=== PATIENT | female | born 1975 | race Caucasian/White ===

== ENCOUNTER 2017-09-30 13:24 | Emergency (ER) | payer MEDICARE, OTHER ==
[~2017-09-30] VITALS: Ht 162.6 cm; Wt 59.1 kg
[~2017-09-30 13:24] MED LIST: CELE10TA PO; CELE20TA PO; IBUP80TA PO; LAMO100T PO; LORA1TAB PO; PERCOCET PO
--- NOTE | 2017-09-30 14:07 | REP ---
CT Head without contrast HISTORY: Fall COMPARISON: None There is no intraparenchymal hemorrhage, acute infarct, mass or midline shift. The ventricular system is normal in appearance. There is no extra cerebral collection. There is no fracture. The visualized sinuses are clear. IMPRESSION: There is no intracranial lesion. Signed by Steve Melendez MD 09/30/2017 01:58 P
--- NOTE | 2017-09-30 14:12 | REP ---
CT cervical spine without contrast HISTORY: Fall COMPARISON: None There is no acute fracture or subluxation. There is no disc bulge or herniation. The spinal canal and neural foramina are patent. The intervertebral discs and vertebral bodies are normal in height. IMPRESSION: There is no acute fracture or subluxation. Signed by Steve Melendez MD 09/30/2017 02:03 P
[2017-09-30 14:32] LABS: MEAN CORPUSCULAR HEMOGLOBIN 31.1 pg (27.0-33.0); MEAN CORPUSCULAR HGB CONC 33.5 g/dl (32.0-36.5); MEAN CORPUSCULAR VOLUME 92.7 fl (80.0-96.0); PLATELET COUNT, AUTOMATED 225 10^3/uL (150-450); RED CELL DISTRIBUTION WIDTH 12.3 % (11.5-14.5)
[2017-09-30 14:52] LABS: ANION GAP 7 MEQ/L (8-16); BLOOD UREA NITROGEN 3 MG/DL (7-18); CALCIUM LEVEL 8.7 MG/DL (8.5-10.1); CARBON DIOXIDE LEVEL 28 MEQ/L (21-32); CHLORIDE LEVEL 105 MEQ/L (98-107); CREATININE FOR GFR 0.64 MG/DL (0.55-1.02); GLOMERULAR FILTRATION RATE > 60.0 (>58); GLUCOSE, FASTING 78 MG/DL (70-105); POTASSIUM SERUM 3.9 MEQ/L (3.5-5.1); SODIUM LEVEL 140 MEQ/L (136-145)
--- NOTE | 2017-09-30 14:55 | REP ---
LUMBAR SPINE, FIVE VIEWS: HISTORY: Fall. There is no acute fracture. The L4-5 intervertebral disc is decreased in height consistent with disc degeneration. The facet joints are normal in appearance. There are 2 mm of retrolisthesis of L5 on S1. There is spina bifida occult of S1. IMPRESSION: Degenerative change as described above. Signed by Steve Melendez MD 09/30/2017 03:07 P
--- NOTE | 2017-09-30 14:56 | REP ---
LEFT ANKLE COMPLETE: 09/30/2017. Clinical history: Trauma, patient fell. Findings: No prior study. The four views show the mortise joint symmetric and preserved. There is no talar dome osteochondral defect. No visible tibial or fibular fracture, avulsion or other acute finding. Talonavicular and calcaneocuboid joints are normal. Talus and calcaneus without a fracture. There is a spur at the insertion of the Achilles tendon. Subtalar joints were intact. There is minor soft tissue swelling anterior to the ankle. Impression: 1. No visible or displaced fracture, avulsion, subluxation or disruption of the mortise joint. Subtalar joints were intact. Small Achilles insertion spur. Signed by Travis Cleveland MD 09/30/2017 05:46 P
--- NOTE | 2017-09-30 14:56 | REP ---
LEFT ELBOW, FOUR VIEWS: HISTORY: Fall. There is no acute fracture or dislocation. The joint space is normal in appearance. IMPRESSION: There is no acute fracture or dislocation. Signed by Steve Melendez MD 09/30/2017 03:07 P
[2017-09-30] MEDS ORDERED: ACETAMINOPHEN 325 MG TAB PO ONE (15:00)
[2017-09-30 15:34] VITALS: BP 121/73
== END 2017-09-30 15:37 | disposition home or self-care (01) ==
LOC: M ED 13:24
DX: T14.8XXA Other injury of unspecified body region, initial encounter (principal); W19.XXXA Unspecified fall, initial encounter; Y92.89 Other specified places as the place of occurrence of the external cause; Y93.89 Activity, other specified; Y99.8 Other external cause status; R56.9 Unspecified convulsions; Z88.2 Allergy status to sulfonamides; Z91.040 Latex allergy status
CPT/HCPCS: 36415; 70450; 72110; 72125; 73080; 73610; 80048; 85027; 99284; G0480

== ENCOUNTER 2018-03-02 17:41 | Emergency (ER) | payer MEDICARE, MEDICAID, OTHER ==
[2018-03-02 19:47] LABS: BASO # 0.1 10^3/uL (0.0-0.2); EOS # 0.3 10^3/uL (0.0-0.50); EOS % 2.4 % (0.0-3.0); HEMATOCRIT 41.4 % (36.0-47.0); HEMOGLOBIN 13.8 g/dl (12.0-15.5); IMMATURE GRANULOCYTE % 0.4 % (0-3.0); LYMPH # 2.5 10^3/uL (1.5-4.5); LYMPH % 23.6 % (24.0-44.0); MEAN CORPUSCULAR HEMOGLOBIN 31.3 pg (27.0-33.0); MEAN CORPUSCULAR HGB CONC 33.3 g/dl (32.0-36.5); MEAN CORPUSCULAR VOLUME 93.9 fl (80.0-96.0); MONO # 0.5 10^3/uL (0.0-0.8); NEUTROPHILS # 7.1 10^3/uL (1.8-7.7); NEUTROPHILS % 67.6 % (36.0-66.0); PLATELET COUNT, AUTOMATED 215 10^3/uL (150-450); RED BLOOD COUNT 4.41 10^6/uL (4.00-5.40); RED CELL DISTRIBUTION WIDTH 12.5 % (11.5-14.5); WHITE BLOOD COUNT 10.5 10^3/uL (4.0-10.0)
[2018-03-02 19:56] LABS: ANION GAP 5 MEQ/L (8-16); BLOOD UREA NITROGEN 4 MG/DL (7-18); CALCIUM LEVEL 8.9 MG/DL (8.5-10.1); CARBON DIOXIDE LEVEL 31 MEQ/L (21-32); CHLORIDE LEVEL 104 MEQ/L (98-107); GLOMERULAR FILTRATION RATE > 60.0 (>58); GLUCOSE, FASTING 110 MG/DL (70-100); POTASSIUM SERUM 3.5 MEQ/L (3.5-5.1); SODIUM LEVEL 140 MEQ/L (136-145)
[2018-03-02] MEDS: LR 1,000 ML IV (20:05)
[2018-03-02] MEDS: KETOROLAC 30 MG/ML VIAL (J1885) IV (20:05)
[2018-03-02 20:07] LABS: ESTIMATED AVERAGE GLUCOSE 97 MG/DL (60-110)
[2018-03-02 20:14] LABS: BEDSIDE GLUCOSE 78 MG/DL (70-105)
[2018-03-02 21:06] LABS: BEDSIDE GLUCOSE 103 MG/DL (70-105)
== END 2018-03-02 21:32 | disposition home or self-care (01) ==
LOC: M ED 17:41
DX: G40.909 Epilepsy, unspecified, not intractable, without status epilepticus (principal); G43.909 Migraine, unspecified, not intractable, without status migrainosus; E16.2 Hypoglycemia, unspecified; F17.210 Nicotine dependence, cigarettes, uncomplicated; Z91.040 Latex allergy status; Z88.2 Allergy status to sulfonamides; Z79.899 Other long term (current) drug therapy
CPT/HCPCS: J1885

== ENCOUNTER 2018-07-17 00:27 | Emergency (ER) | payer MEDICARE, MEDICAID ==
[2018-07-17] MEDS: NS 1,000 ML IV (00:59)
[2018-07-17] MEDS: lamoTRIgine 100MG TAB PO (01:21)
[2018-07-17 01:32] LABS: BEDSIDE GLUCOSE 95 MG/DL (70-105)
[2018-07-17 01:54] LABS: ANION GAP 7 MEQ/L (8-16); BLOOD UREA NITROGEN 6 MG/DL (7-18); CALCIUM LEVEL 8.4 MG/DL (8.5-10.1); CARBON DIOXIDE LEVEL 29 MEQ/L (21-32); CHLORIDE LEVEL 110 MEQ/L (98-107); CREATININE FOR GFR 0.72 MG/DL (0.55-1.30); ETHYL ALCOHOL (ETHANOL) 0.056 % (0.000-0.010); GLOMERULAR FILTRATION RATE > 60.0 (>58); GLUCOSE, FASTING 87 MG/DL (70-100); POTASSIUM SERUM 3.9 MEQ/L (3.5-5.1); SODIUM LEVEL 146 MEQ/L (136-145)
== END 2018-07-17 02:38 | disposition home or self-care (01) ==
LOC: M ED 00:27
DX: G40.909 Epilepsy, unspecified, not intractable, without status epilepticus (principal); F10.929 Alcohol use, unspecified with intoxication, unspecified; G43.909 Migraine, unspecified, not intractable, without status migrainosus; F32.9 Major depressive disorder, single episode, unspecified; Z79.899 Other long term (current) drug therapy; Z91.040 Latex allergy status; Z88.2 Allergy status to sulfonamides
CPT/HCPCS: G0480

== ENCOUNTER 2019-02-05 13:33 | Emergency (ER) | payer MEDICARE, MEDICAID ==
[~2019-02-05 13:33] MED LIST changes: +EXCETAB80 PO; +ONFI10TA PO
[2019-02-05 13:37] VITALS: BP 114/63
[2019-02-05] MEDS ORDERED: AIMO70IN (13:48)
== END 2019-02-05 14:37 | disposition home or self-care (01) ==
LOC: M ED 13:33
DX: F44.5 Conversion disorder with seizures or convulsions (principal); G40.409 Other generalized epilepsy and epileptic syndromes, not intractable, without status epilepticus; Z72.0 Tobacco use; Z79.899 Other long term (current) drug therapy; Z91.040 Latex allergy status; Z88.2 Allergy status to sulfonamides

== ENCOUNTER 2019-07-25 18:22 | Emergency (ER) | payer MEDICARE, MEDICAID ==
[~2019-07-25] VITALS: Ht 162.6 cm; Wt 65.9 kg
[~2019-07-25 18:22] MED LIST changes: +AIMO70IN; +OXYC1TAB23 PO; -PERCOCET PO
[2019-07-25] MEDS ORDERED: LORA1TAB12 (18:44)
[2019-07-25 19:42] LABS: BASO # 0.1 10^3/uL (0.0-0.2); BASO % 0.8 % (0.0-1.0); EOS # 0.1 10^3/uL (0.0-0.5); EOS % 1.3 % (0.0-3.0); HEMOGLOBIN 13.6 g/dl (12.0-15.5); LYMPH # 2.6 10^3/uL (1.5-5.0); LYMPH % 27.2 % (24.0-44.0); MEAN CORPUSCULAR HEMOGLOBIN 32.3 pg (27.0-33.0); MONO # 0.6 10^3/uL (0.0-0.8); MONO % 6.1 % (0.0-5.0); NEUTROPHILS # 6.2 10^3/uL (1.5-8.5); NEUTROPHILS % 64.3 % (36.0-66.0); PLATELET COUNT, AUTOMATED 220 10^3/uL (150-450); RED BLOOD COUNT 4.21 10^6/uL (4.00-5.40); WHITE BLOOD COUNT 9.7 10^3/uL (4.0-10.0)
[2019-07-25 20:10] LABS: ALBUMIN 3.8 GM/DL (3.2-5.2); ALT/SGPT 16 U/L (12-78); BILIRUBIN,TOTAL 0.3 MG/DL (0.2-1.0); BLOOD UREA NITROGEN 5 MG/DL (7-18); CALCIUM LEVEL 9.1 MG/DL (8.5-10.1); CARBON DIOXIDE LEVEL 28 MEQ/L (21-32); CHLORIDE LEVEL 104 MEQ/L (98-107); CREATININE FOR GFR 0.76 MG/DL (0.55-1.30); GLOMERULAR FILTRATION RATE > 60.0 (>58); GLUCOSE, FASTING 79 MG/DL (70-100); POTASSIUM SERUM 3.7 MEQ/L (3.5-5.1); SODIUM LEVEL 138 MEQ/L (136-145); TOTAL PROTEIN 6.9 GM/DL (6.4-8.2)
--- NOTE | 2019-07-25 20:44 | ECGEPIP ---
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
[2019-07-25 20:45] VITALS: BP 143/84
== END 2019-07-25 20:52 | disposition left against medical advice (07) ==
LOC: M ED 18:22 → EDBD 18:22 → M ED 20:52
DX: R56.9 Unspecified convulsions (principal); R51 Headache; Z53.21 Procedure and treatment not carried out due to patient leaving prior to being seen by health care provider

== ENCOUNTER → 2020-02-28 | Outpatient (CLI) | payer MEDICARE, MEDICAID ==
[~2020-02-28] MED LIST changes: +LORA1TAB4
== END ==
LOC: M LABSMTC 12:00
PROVIDERS: ATTEND Family Medicine
DX: Z20.828 Contact with and (suspected) exposure to other viral communicable diseases (principal); Z11.59 Encounter for screening for other viral diseases

== ENCOUNTER 2021-08-16 23:33 | Inpatient (IN) | payer MEDICARE, MEDICAID ==
[~2021-08-16 23:33] MED LIST changes: -LORA1TAB4; +LORA1TAB4 PO
[2021-08-16] MEDS ORDERED: LORazepam 2 MG/ML VIAL As Ordered ONE (23:40)
[2021-08-16] MEDS ORDERED: ROCURONIUM BROMIDE 50 MG/5 ML VIAL IV ONE (23:50)
[2021-08-16] MEDS ORDERED: ETOMIDATE INJ 20MG/10ML VIAL IV ONE (23:50)
[2021-08-16] MEDS ORDERED: PROPOFOL 1,000 MG/100 ML VIAL As Ordered ONE (23:59)
[2021-08-17] VITALS (22 sets, daily range): BP systolic 113–186; BP diastolic 62–106
[2021-08-17] MEDS ORDERED: propofoL 1,000 MG in IV 1 EA IV SCH (00:05)
[2021-08-17] MEDS ORDERED: levETIRAcetam INJection 1,000 MG in D5W 100 ML IV ONE (00:05)
[2021-08-17 00:21] LABS: BASO # 0.1 10^3/uL (0.0-0.2); BASO % 0.9 % (0.0-1.0); EOS # 0.2 10^3/uL (0.0-0.5); EOS % 1.3 % (0.0-3.0); HEMATOCRIT 40.4 % (36.0-47.0); LYMPH # 3.9 10^3/uL (1.5-5.0); LYMPH % 27.1 % (24.0-44.0); MEAN CORPUSCULAR HEMOGLOBIN 32.3 pg (27.0-33.0); MEAN CORPUSCULAR HGB CONC 34.7 g/dl (32.0-36.5); MEAN CORPUSCULAR VOLUME 93.1 fl (80.0-96.0); MONO # 0.8 10^3/uL (0.0-0.8); MONO % 5.4 % (2.0-8.0); NEUTROPHILS # 9.2 10^3/uL (1.5-8.5); NEUTROPHILS % 64.7 % (36.0-66.0); PLATELET COUNT, AUTOMATED 254 10^3/uL (150-450); RED BLOOD COUNT 4.34 10^6/uL (4.00-5.40); WHITE BLOOD COUNT 14.2 10^3/uL (4.0-10.0)
[2021-08-17 00:42] LABS: RSV AMPLIFICATION NEGATIVE (NEGATIVE)
[2021-08-17 00:45] LABS: OSMOLALITY SERUM 266 MOSM/KG (275-295)
[2021-08-17 01:06] LABS: ACETAMINOPHEN LEVEL 2.5 UG/ML (10.0-30.0); ALBUMIN 3.5 GM/DL (3.2-5.2); ALT/SGPT 10 U/L (12-78); BILIRUBIN,DIRECT < 0.1 MG/DL (0.0-0.2); BILIRUBIN,TOTAL 0.3 MG/DL (0.2-1.0); BLOOD UREA NITROGEN 6 MG/DL (7-18); CALCIUM LEVEL 8.3 MG/DL (8.5-10.1); CARBON DIOXIDE LEVEL 22 MEQ/L (21-32); CHLORIDE LEVEL 99 MEQ/L (98-107); CK-MB VALUE MASS 1.3 NG/ML (<3.6); CPK CREATINE PHOSPHOKINASE 91 U/L (26-192); CREATININE FOR GFR 0.75 MG/DL (0.55-1.30); ETHYL ALCOHOL (ETHANOL) < 0.003 % (0.000-0.010); GLOMERULAR FILTRATION RATE > 60.0 (>58); GLUCOSE, FASTING 88 MG/DL (70-100); MB/CK RELATIVE INDEX 1.43 (< OR =4); POTASSIUM SERUM 4.2 MEQ/L (3.5-5.1); SODIUM LEVEL 131 MEQ/L (136-145); TOTAL PROTEIN 6.8 GM/DL (6.4-8.2); TROPONIN I < 0.02 NG/ML (< 0.10)
[2021-08-17 01:06] LABS: AMPHETAMINES LEVEL URINE NEGATIVE (NEGATIVE); BARBITURATES URINE NEGATIVE (NEGATIVE); BENZODIAZEPINES URINE POSITIVE (NEGATIVE); CANNABINOIDS URINE NEGATIVE (NEGATIVE); COCAINE METABOLITE URINE NEGATIVE (NEGATIVE); METHADONE URINE NEGATIVE (NEGATIVE); OPIATES URINE NEGATIVE (NEGATIVE); PHENCYCLIDINE URINE NEGATIVE (NEGATIVE)
[2021-08-17] MEDS ORDERED: CLOB10TA PO (01:14)
[2021-08-17] MEDS ORDERED: CITA40TA4 PO (01:14)
[2021-08-17] MEDS ORDERED: LAMO100T3 PO (01:14)
--- NOTE | 2021-08-17 01:14 | REPVR ---
PROCEDURE INFORMATION: Exam: CT Head Without Contrast Exam date and time: 08/16/2021 12:24 AM Age: 46 years old Clinical indication: Pain; Headache; Additional info: Altered mental status TECHNIQUE: Imaging protocol: Computed tomography of the head without contrast. Radiation optimization: All CT scans at this facility use at least one of these dose optimization techniques: automated exposure control; mA and/or kV adjustment per patient size (includes targeted exams where dose is matched to clinical indication); or iterative reconstruction. COMPARISON: CT Head without contrast 02/28/2018 5:30 PM FINDINGS: Brain: There is no CT evidence for an acute large vessel territorial infarct. No acute intracranial hemorrhage is seen. No mass, mass effect, midline shift, or herniation is noted. Cerebral ventricles: Normal for age. No hydrocephalus. Paranasal sinuses: The imaged portions of the sinuses are well aerated. No air-fluid levels are noted in the sinuses. The sinuses were not fully imaged. Mastoid air cells: The mastoid air cells are well aerated. Bones/joints: The skull is intact. No suspicious osteolytic or osteoblastic lesion. Soft tissues: Unremarkable. No soft tissue fluid collection. Nasopharynx: There are secretions in the nasopharynx. IMPRESSION: No acute intracranial abnormality. Electronically signed by: Roger Verduzco On 08/17/2021 01:13:50 AM
[2021-08-17] MEDS ORDERED: AIMO70IN2 INJ (01:16)
--- NOTE | 2021-08-17 01:16 | REPVR ---
PROCEDURE INFORMATION: Exam: XR Chest Exam date and time: 08/17/2021 12:22 AM Age: 46 years old Clinical indication: Device placement; Ett placement (vent status); Additional info: Post intubation tube placement TECHNIQUE: Imaging protocol: XR of the chest. Views: 1 view. COMPARISON: CR Chest, 2 view PA, Lat 02/28/2018 5:41 PM FINDINGS: Tubes, catheters and devices: An endotracheal tube is seen overlying the trachea, and the tip terminates 3.1 cm above the landry. There is an enteric tube terminating in the body of the stomach and the side hole for the enteric tube terminates just below the gastroesophageal junction. Lungs: Unremarkable. No consolidation. No pulmonary edema. Pleural spaces: Unremarkable. No pleural effusion. No pneumothorax. Heart/Mediastinum: Unremarkable. No cardiomegaly. Bones/joints: Unremarkable. IMPRESSION: 1. Endotracheal tube terminating in the trachea 3.1 cm above the landry. 2. Enteric tube terminating in the body of the stomach and the side hole for the enteric tube terminates just below the gastroesophageal junction. 3. No radiographic evidence for an acute cardiopulmonary process. Electronically signed by: Roger Verduzco On 08/17/2021 01:15:56 AM
[2021-08-17] MEDS ORDERED: MED REC COMMENT (01:19)
[2021-08-17] MEDS ORDERED: HOME MED LIST COMPLETE! XX SCH (01:20)
[2021-08-17] MEDS ORDERED: PROPOFOL 1,000 MG/100 ML VIAL As Ordered ONE (01:53)
[2021-08-17] MEDS ORDERED: MORPHINE 2 MG/ML 1ML VIAL (J2270) IV PRN (02:35)
[2021-08-17] MEDS ORDERED: MIDAZOLAM INJ 2MG/2ML VIAL (J2250 PER 1MG) IV PRN (02:35)
[2021-08-17] MEDS: IPRATROPIUM 0.5MG/ALBUTEROL 2.5MG INH SOL UD 3ML (DUONEB) NEB SCH ×6 (04:28→23:59)
[2021-08-17 04:29] LABS: HEMOGLOBIN 13.6 g/dl (12.0-15.5); MEAN CORPUSCULAR HEMOGLOBIN 32.4 pg (27.0-33.0); MEAN CORPUSCULAR HGB CONC 34.9 g/dl (32.0-36.5); MEAN CORPUSCULAR VOLUME 92.9 fl (80.0-96.0); PLATELET COUNT, AUTOMATED 258 10^3/uL (150-450)
[2021-08-17] MEDS: propofoL 1,000 MG in IV 1 EA IV SCH ×3 (04:38→09:29)
[2021-08-17 04:59] LABS: ALBUMIN 3.2 GM/DL (3.2-5.2); ALT/SGPT 12 U/L (12-78); BILIRUBIN,TOTAL 0.4 MG/DL (0.2-1.0); BLOOD UREA NITROGEN 5 MG/DL (7-18); CALCIUM LEVEL 8.3 MG/DL (8.5-10.1); CARBON DIOXIDE LEVEL 26 MEQ/L (21-32); CHLORIDE LEVEL 102 MEQ/L (98-107); CHOLESTEROL LEVEL 242 MG/DL (< 200); CPK CREATINE PHOSPHOKINASE 117 U/L (26-192); CREATININE FOR GFR 0.67 MG/DL (0.55-1.30); GLOMERULAR FILTRATION RATE > 60.0 (>58); GLUCOSE, FASTING 83 MG/DL (70-100); LDH LACTATE DEHYDROGENASE 189 U/L (84-246); PHOSPHORUS LEVEL 2.7 MG/DL (2.5-4.9); POTASSIUM SERUM 3.6 MEQ/L (3.5-5.1); SODIUM LEVEL 135 MEQ/L (136-145); TOTAL PROTEIN 6.3 GM/DL (6.4-8.2); TRIGLYCERIDES LEVEL 494 MG/DL (<150)
[2021-08-17 05:05] LABS: BASOPHILS 1 % (0-1); EOSINOPHILS 2 % (0-3); LYMPHOCYTES 29 % (16-44); MONOCYTES 5 % (0-5); NEUTROPHILS 63 % (28-66); PLATELET ESTIMATE NORMAL (NORMAL); SMUDGE CELLS 1+
[2021-08-17 05:06] LABS: TOXIC VACUOLATION 1+
[2021-08-17] MEDS: KCL 20MEQ IN D5/0.45NS 1000ML 1,000 ML IV SCH ×2 (05:15→09:31)
[2021-08-17] MEDS: HEPARIN SOD (PORCINE) 5000UNITS/ML 1ML VIAL/SYRINGE SC SCH ×3 (05:39→20:34)
--- NOTE | 2021-08-17 08:25 | HPE ---
HISTORY AND PHYSICAL/CRITICAL CARE NOTE DATE OF ADMISSION: 08/17/2021 START TIME: 209 STOP TIME: 243 HISTORY OF PRESENT ILLNESS: I was called to attend Columba Simmons here in the ER. 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 Reportedly EMS was summoned to her home this evening for someone that had nine seizures. When EMS arrived, the only person there was the patient. She was quite confused. She was felt to be postictal. She was given IV Versed by EMS. She then became apneic. She was ventilated with an Ambu bag without device during her transport. On arrival here, she was apneic, had significant secretions and examination of her eyes had very significant nystagmus and, therefore, was intubated. ER spoke with Dr. Carpenter and she was loaded with Keppra and placed on propofol. No further seizure activity. ALLERGIES: Listed as SULFA and LATEX. HOME MEDICATION LIST: - Excedrin migraine - Celexa 20 twice a day - Aimovig auto-injector - Lamotrigine 300 mg every morning and 300 mg at bedtime - P.r.n. Ativan. SOCIAL HISTORY, FAMILY HISTORY and REVIEW OF SYSTEMS: Currently unobtainable due to her status. PHYSICAL EXAMINATION: On exam, current blood pressure is 138/90, heart rate 60 and regular, respiratory rate is 16 via the ventilator. Knight catheter is in place. She is currently afebrile. HEENT: Shows oral endotracheal and orogastric tube in place. Pupils reactive. Sclerae clear. There is currently no nystagmus. Trachea is in the midline. CHEST: Clear to both auscultation and percussion. Expansion symmetric and no significant focal adventitious breath sounds are identified. Tactile fremitus is palpable throughout. CARDIAC EXAM: Regular without any murmur or gallop. Peripheral pulses palpable. No obvious edema. ABDOMEN: Soft with active bowel sounds. No convincing organomegaly or masses. EXTREMITIES: Show no obvious cyanosis or clubbing. NEUROLOGIC: Neurologically, she is sedate. PSYCHIATRIC EXAM: Shows her to be sedate. CT scan of the head is unremarkable. Chest x-ray shows her ET tube in good position. Orogastric tube is noted below the diaphragm. Arterial blood gas obtained as what appears to be on assist control of 18, total volume of 450, PEEP of 5, FiO2 of 30%. There a pH of 7.484, pCO2 of 34, pO2 of 80. Sodium 131, potassium (K) 4.2, chloride 99, CO2 of 22, BUN 6, creatinine 0.75, osmolality 266. Bilirubin 0.3. Ammonia 21. Troponin 0.02. Lactic acid 1.6. White blood cell count of 14.2, hemoglobin 14.0, platelet count 254,000, 64% segs, no bands. Viral panel is negative. Tox screen positive for acetaminophen at 2.5 and positive for benzodiazepines. IMPRESSION: 1. Seizure disorder. 2. Respiratory failure on the basis of the above. RECOMMENDATIONS: At this point, she will be admitted to the intensive care unit. For now, she has been loaded with Keppra. We will continue that. I will consult neurology in the morning. She will be continued on propofol. I will get a Keppra level as I suspect she may be noncompliant. There is no evidence of active infection. Of interest, she has a normal lactic acid level and no acidosis so it does not appear that she had significant tonic-clonic seizure activity. Certainly, one would not expect after nine seizures to be able to summon EMS by herself. At this point, we will proceed as outlined above. Also, deep vein thrombosis (DVT) prophylaxes are in place. There is nothing to suggest aspiration; therefore, we will not add empiric antibiotics but she will be followed closely for that. If she is not extubated within 24 hours, we will begin enteral feeds. We will facilitate transportation to the intensive care unit. I left the bedside at 0244 hours. Thirty-four minutes of critical care time were at the bedside not including procedures.
--- NOTE | 2021-08-17 08:35 | ECGEPIP ---
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
[2021-08-17] MEDS ORDERED: CHLORHEXIDINE GLUCONATE 0.12 % 15ML UDC (PERIDEX ORAL RINSE) MT SCH (09:00)
[2021-08-17] MEDS ORDERED: PANTOPRAZOLE 40MG VIAL (C9113 PER 1) IV SCH (09:00)
[2021-08-17] MEDS: levETIRAcetam 250MG TABLET (KEPPRA) PO SCH ×2 (09:31→20:32)
--- NOTE | 2021-08-17 10:22 | IPNPDOC ---
Date Seen The patient was seen on 08/17/21. Progress Note SUBJECTIVE: This is a 46 year old female presenting to the ED for possible seizures/pseudoseizure. She stated that she had nine seizures. When EMS arrived, the only person there was the patient. She was quite confused and felt to be postictal. She was given IV Versed by EMS. On arrival here, she was apneic, with significant secretions and examination of her eyes had very significant nystagmus and, therefore, was intubated. ER spoke with Dr. Carpenter and she was loaded with Keppra and placed on propofol. No further seizure activity. Patient was seen at bedside today. No acute events overnight. She was arousable when off sedation and was able to follow some simple commands. She started to gagged profusely and was extubated. She will be stepped down from the ICU and admitted under hospitalist service. REVIEW OF SYSTEMS: unable to obtain OBJECTIVE PHYSICAL EXAMINATION: VITAL SIGNS: Please see below. GENERAL: sedated; in acute distress HEENT: PERRLA; wandering eyes; moist mucous membranes; lots of secretions CARDIOVASCULAR: regular rate and rhythm; S1 and S2; no murmurs noted RESPIRATORY: clear to auscultation b/l; no wheezing, rales or rhonchi ABDOMINAL: normoactive bowel sounds; nondistended no tenderness to palpation EXTREMITIES: no pitting edema b/l NEUROLOGIC: arousable to name; gagging; able to perform simple tasks LABORATORY DATA, IMAGING STUDIES, MICROBIOLOGY: Please see below. ASSESSMENT AND PLAN: This is a 46 year old female presenting with possible s eizures/pseudoseizure and apneic and was initially intubated and then extubated this morning. She will be stepped down from the ICU and admitted under hospitalist service. PROBLEMS: 1. Respiratory failure - initially intubated on 08/16/2021 and then extubated today morning - will monitor O2 saturations and maintain airways 2. Seizures / Pseudoseizures - pt is taking lamotrigine outpatient; unknown if complaint; pending lamotrigine levels - was loaded on keppra in the ED and then continued on Keppra - neurology consulted; we appreciate their input in the care of this patient - pending EEG 3. DVT prophylaxis - TEDs and SCDs and Heparin VS, I&O, 24H, Fishbone Vital Signs/I&O Vital Signs Date Time Temp Pulse Resp B/P (MAP) Pulse Ox O2 Delivery O2 Flow Rate FiO2 08/17/21 09:29 138/89 08/17/21 08:00 97.7 78 18 99 Ventilator 30 I&O- Last 24 Hours up to 6 AM 08/17/21 06:00 Intake Total 350 ml Output Total 430 ml Balance -80 ml Laboratory Data 24H LABS Laboratory Tests 2 08/16/21 23:54: Immature Granulocyte % (Auto) 0.6, Neutrophils (%) (Auto) 64.7, Lymphocytes (%) (Auto) 27.1, Monocytes (%) (Auto) 5.4, Eosinophils (%) (Auto) 1.3, Basophils (%) (Auto) 0.9, Neutrophils # (Auto) 9.2H, Lymphocytes # (Auto) 3.9, Monocytes # (Auto) 0.8, Eosinophils # (Auto) 0.2, Basophils # (Auto) 0.1, Nucleated Red Blood Cells % (auto) 0.0, Anion Gap 10, Glomerular Filtration Rate > 60.0, Osmolality 266L, Lactic Acid Level 1.6, Calcium Level 8.3L, Total Bilirubin 0.3, Direct Bilirubin < 0.1, Aspartate Amino Transf (AST/SGOT) 13, Alanine Aminotransferase (ALT/SGPT) 10L, Alkaline Phosphatase 90, Ammonia 21, Total Creatine Kinase 91, Creatine Kinase MB 1.3, Creatine Kinase MB Relative Index 1.43, Troponin I < 0.02, Total Protein 6.8, Albumin 3.5, Albumin/Globulin Ratio 1.1L, Thyroid Stimulating Hormone (TSH) 2.320, Acetaminophen Level 2.5L, Ethyl Alcohol Level < 0.003, Coronavirus (COVID-19)(PCR) NEGATIVE, Influenza Type A (RT-PCR) NEGATIVE, Influenza Type B (RT-PCR) NEGATIVE, Respiratory Syncytial Virus (PCR) NEGATIVE 08/17/21 00:04: POC pH (Misc Panel) 7.484H, POC Base Excess (Misc Panel) 2.0, POC Saturated Percent O2 (Misc) 97, POC pO2 (Misc Panel) 80.0, POC pCO2 (Misc Panel) 34.1L, POC HCO3 (Misc Panel) 25.7, POC Total CO2 (Misc Panel) 27.0 08/17/21 00:10: POC Troponin I (Misc) 0.00 08/17/21 00:11: Urine Opiates Screen NEGATIVE, Urine Methadone Screen NEGATIVE, Urine Barbiturates Screen NEGATIVE, Urine Phencyclidine Screen NEGATIVE, Urine Amphe tamines Screen NEGATIVE, Urine Benzodiazepines Screen POSITIVEH, Urine Cocaine Metabolite Screen NEGATIVE, Urine Cannabinoids Screen NEGATIVE 08/17/21 04:16: Neutrophils (%) (Auto) , Nucleated Red Blood Cells % (auto) 0.0, Neutrophils 63, Lymphocytes (Manual) 29, Monocytes (Manual) 5, Eosinophils (Manual) 2, Basophils (Manual) 1, Toxic Vacuolation 1+, Smudge Cells 1+, Platelet Estimate NORMAL, Anion Gap 7L, Glomerular Filtration Rate > 60.0, Calcium Level 8.3L, Phosphorus Level 2.7, Total Bilirubin 0.4, Aspartate Amino Transf (AST/SGOT) 14, Alanine Aminotransferase (ALT/SGPT) 12, Alkaline Phosphatase 88, Lactate Dehydrogenase 189, Total Creatine Kinase 117, Total Protein 6.3L, Albumin 3.2, Albumin/Globulin Ratio 1.0L, Triglycerides Level 494H, Cholesterol Level 242H CBC/BMP Laboratory Tests 08/16/21 23:54 08/17/21 04:16 GME ATTESTATION GME ATTESTATION My faculty preceptor for this patient encounter was physically present during the encounter and was fully available. All aspects of the patient interview, examination, medical decision making process, and medical care plan development were reviewed and approved by the faculty preceptor. The faculty preceptor is aware and concurs with the plan as stated in the body of this note and will attest to such by his/her cosignature. ATTENDING NOTE I was physically present for the interview and exam. Agree with plan. Likely will extubate today. Melly Grullon DO Aug 17, 2021 10:20 Hardy Henderson Aug 17, 2021 19:34
[2021-08-17] MEDS ORDERED: CEPACOL LOZENGE PO PRN (11:20)
[2021-08-17] MEDS ORDERED: ACETAMINOPHEN TAB 650MG DOSE (2X325MG) PO PRN (11:20)
--- NOTE | 2021-08-17 15:58 | IPNPDOC ---
Text Note Date of Service The patient was seen on 08/17/21. NOTE Patient signed out to me by herpetologist Dr. Henderson. Patient was successfully extubated today. When I saw the patient she complains of some uncomfortable sensation in her throat. Objective: GENERAL APPEARANCE: NAD HEENT: no scleral icterus, no JVD, EOMI CARDIOVASCULAR: S1S2 LUNGS: Diminished lung sounds bilaterally ABDOMEN: soft & not tender w palpation MUSCULOSKELETAL: no cyanosis, no swelling INTEGUMENT: no generalized pallor NEUROLOGICAL: cranial nerve function from 2-12 intact, follows commands, speech not dysarthric Assessment and plan Patient 46 years old female with past medical history of seizures/pseudoseizures presented to hospital with confusion, subsequently she became apneic. EMS report stated that she had 9 seizures at home. Patient was intubated on 08/16/21 Seizures/apnea/acute hypoxemic respiratory failure Patient was intubated on arrival and successfully extubated today CT negative for stroke Dr Brock recommended continue Keppra and restart her lamotrigine and clobazam EEG was done today, results pending Seizure and fall risk precaution DVT prophylaxis with heparin VS,Fishbone, I+O VS, Fishbone, I+O Laboratory Tests 08/16/21 23:54 08/17/21 04:16 Vital Signs Date Time Temp Pulse Resp B/P (MAP) Pulse Ox O2 Delivery O2 Flow Rate FiO2 08/17/21 12:00 92 16 129/66 (87) 97 Room Air 08/17/21 11:00 5.0 28 08/17/21 08:00 99.0 I&O- Last 24 Hours up to 6 AM 08/17/21 06:00 Intake Total 350 ml Output Total 430 ml Balance -80 ml JESSIE CRAIG DO Aug 17, 2021 15:58
[2021-08-17] MEDS ORDERED: EXCEDRIN MIGRAINE TABLET PO PRN (19:55)
[2021-08-17] MEDS: CitaloPRAM (CeleXA) 20 MG TAB PO SCH (20:32)
[2021-08-17] MEDS: lamoTRIgine 100MG TAB PO SCH (20:32)
[2021-08-18] VITALS: BP 109/58
[2021-08-18 04:00] VITALS: BP 111/65
[2021-08-18 05:41] LABS: BASO # 0.1 10^3/uL (0.0-0.2); BASO % 0.8 % (0.0-1.0); EOS # 0.1 10^3/uL (0.0-0.5); EOS % 1.6 % (0.0-3.0); HEMATOCRIT 34.9 % (36.0-47.0); HEMOGLOBIN 11.8 g/dl (12.0-15.5); LYMPH % 35.6 % (24.0-44.0); MEAN CORPUSCULAR HEMOGLOBIN 31.8 pg (27.0-33.0); MEAN CORPUSCULAR HGB CONC 33.8 g/dl (32.0-36.5); MEAN CORPUSCULAR VOLUME 94.1 fl (80.0-96.0); MONO # 0.6 10^3/uL (0.0-0.8); MONO % 6.6 % (2.0-8.0); NEUTROPHILS # 4.6 10^3/uL (1.5-8.5); PLATELET COUNT, AUTOMATED 231 10^3/uL (150-450); RED BLOOD COUNT 3.71 10^6/uL (4.00-5.40); WHITE BLOOD COUNT 8.3 10^3/uL (4.0-10.0)
[2021-08-18] MEDS: HEPARIN SOD (PORCINE) 5000UNITS/ML 1ML VIAL/SYRINGE SC SCH (06:19)
[2021-08-18 06:20] LABS: ALBUMIN 2.9 GM/DL (3.2-5.2); ALT/SGPT 10 U/L (12-78); BILIRUBIN,TOTAL 0.2 MG/DL (0.2-1.0); BLOOD UREA NITROGEN 11 MG/DL (7-18); CALCIUM LEVEL 8.3 MG/DL (8.5-10.1); CARBON DIOXIDE LEVEL 29 MEQ/L (21-32); CHLORIDE LEVEL 104 MEQ/L (98-107); CHOLESTEROL LEVEL 214 MG/DL (< 200); CPK CREATINE PHOSPHOKINASE 52 U/L (26-192); CREATININE FOR GFR 0.86 MG/DL (0.55-1.30); GLOMERULAR FILTRATION RATE > 60.0 (>58); GLUCOSE, FASTING 99 MG/DL (70-100); LDH LACTATE DEHYDROGENASE 148 U/L (84-246); PHOSPHORUS LEVEL 4.2 MG/DL (2.5-4.9); POTASSIUM SERUM 3.8 MEQ/L (3.5-5.1); SODIUM LEVEL 138 MEQ/L (136-145); TOTAL PROTEIN 5.6 GM/DL (6.4-8.2); TRIGLYCERIDES LEVEL 359 MG/DL (<150)
[2021-08-18] MEDS: IPRATROPIUM 0.5MG/ALBUTEROL 2.5MG INH SOL UD 3ML (DUONEB) NEB SCH ×2 (07:27→11:07)
[2021-08-18 07:36] VITALS: BP 122/72
--- NOTE | 2021-08-18 07:52 | CR ---
CONSULTATION DATE: 08/17/2021 REFERRING PHYSICIAN: Hardy Henderson M.D. REASON FOR CONSULTATION: Seizures. HISTORY OF PRESENT ILLNESS: Columba Simmons is a 46-year-old woman who was admitted to [facility] due to multiple seizures. The patient states that she has history of seizures and pseudoseizures. She was admitted at [facility] for video EEG monitoring which had shown both findings. The patient states that she takes her medications regularly. She also has chronic headaches. She states that she continues to have seizures once or twice a month. She has staring episodes and grand mal seizures. She describes her aura as feeling tingling on top of her scalp followed by feeling of distant feeling, tunnel vision and she goes into her full blown seizures in which her body shakes. She states that her staring episodes last for 20-30 seconds and grand mal seizures last for a couple of minutes. She is completely unconscious and does not remember what happens. She states that she had multiple seizures yesterday. She does not remember how many. It is mentioned in the electronic medical record that she had nine seizures. She called a friend and stated that she had seizures. Her friend called 911. Then EMS arrived. They only found patient alone. She was quite confused. She was thought to be postictal. She was given intravenous Versed by EMS and she became apneic. She was ventilated with Ambu bag without device during her transport. Upon arrival in the emergency department, she was apneic with significant secretions and had nystagmus and she was intubated. She was loaded with Keppra and propofol. She had no further seizures. She was on ventilator overnight which was extubated today. She complains of slight headache this evening when I saw her. She has chronic headaches at baseline and takes Aimovig injections. HOME MEDICATIONS: 1. Excedrin. 2. Citalopram 20 mg p.o. b.i.d. 3. Lamotrigine 300 mg p.o. b.i.d. 4. Aimovig subcutaneous once a month injection. 5. Clobazam b.i.d. 6. Ativan p.r.n. ALLERGIES: SULFA, LATEX. SOCIAL HISTORY: She denies smoking, alcohol or illicit drugs. FAMILY HISTORY: Unremarkable and noncontributory. PHYSICAL EXAMINATION: VITAL SIGNS: Blood pressure 128/90, pulse 60, respiratory rate 14. HEART: Regular rate and rhythm. LUNGS: Clear to auscultation. ABDOMEN: Soft, nontender, nondistended. EXTREMITIES: No pedal edema. MUSCULOSKELETAL: No abnormalities. SKIN: No rash. NEUROLOGICAL: No signs of meningeal irritation. The patient is awake, alert, oriented to place, person and time. Normal speech, comprehension and repetition. Extraocular muscles are intact. No facial weakness. Tongue and uvula are midline. 5/5 strength in all four extremities. Deep tendon reflexes are 2+ throughout, normal sensation throughout. Gait was not tested. DIAGNOSTIC STUDIES: CT scan of head was unremarkable. Basic metabolic profile was unremarkable. Urine toxicology screen was positive for benzodiazepine. ASSESSMENT: 1. Suspected complex partial and generalized tonic-clonic seizures. 2. History of pseudoseizures/PNES and patient had video EEG monitoring at [facility] which confirmed both these findings. 3. Chronic migraines. PLAN: 1. Continue Lamotrigine 300 mg p.o. b.i.d. 2. Continue Clobazam b.i.d. after confirming her outpatient dose. 3. Continue Aimovig once a month injection subcutaneously. 4. She should not be driving. [place] State rules and regulations regarding driving should apply. 5. Follow with Dr. Gilbert as planned.
[2021-08-18] MEDS: lamoTRIgine 100MG TAB PO SCH (08:45)
[2021-08-18] MEDS: CitaloPRAM (CeleXA) 20 MG TAB PO SCH (08:46)
[2021-08-18] MEDS: levETIRAcetam 250MG TABLET (KEPPRA) PO SCH (08:46)
[2021-08-18] MEDS ORDERED: PANTOPRAZOLE 20 MG TAB PO SCH (09:00)
[2021-08-18 12:00] VITALS: BP 124/64
--- NOTE | 2021-08-18 13:05 | EEG ---
ELECTROENCEPHALOGRAM DATE: 08/17/2021 REFERRING PHYSICIAN: Hardy Henderson MD DIAGNOSIS: Seizures. EEG#: [id number] HISTORY: The patient is a 46-year-old woman with a history of seizures and pseudoseizures. She is currently taking Lamictal and Onfi. She was brought in to [facility] with multiple episodes and was intubated. TECHNICAL DESCRIPTION: This digital electroencephalogram (EEG) was recorded by 21 scalp, ear, and two electrocardiogram (EKG) electrodes and was reviewed in bipolar and referential montages following reformatting in 10-20 international electrode placement system. INTERPRETATION: The patient was noted to be in awake and drowsy states during this EEG. Resting and awake background rhythm consisted of 9 Hz alpha activity measuring 15-40 microvolts in amplitude which was symmetric and reactive to eye opening. Attenuation of posterior dominant rhythm was seen during transition to drowsiness. Stage I and II sleep were reviewed and were symmetric bilaterally. Hyperventilation was not performed. Photic stimulation was not performed. The patient was too tired and was recently extubated at the time of her EEG. Mild intermittent bilateral temporal theta slowing was noted. No clear epileptiform abnormalities were seen. No relevant clinical activity was noted. CONCLUSION: This EEG in awake, drowsy states, stage I and II sleep is minimally abnormal due to presence of mild intermittent bilateral temporal theta slowing consistent with nonspecific diffuse cerebral dysfunction such as seen in encephalopathy due to multiple potential causes including toxic, medication-related, metabolic, infectious causes. No clear epileptiform abnormalities are seen. Clinical correlation is recommended.
--- NOTE | 2021-08-18 13:30 | DS.PDOC ---
Discharge Summary General Date of Admission Aug 17, 2021 at 02:31 Date of Discharge 08/18/2021 Attending Physician: PALLAVI SUAZO DO Specialist/Consultants Involve: Hardy Henderson Specialist/Consultants Involve Rhiannon Sheldon MD, neurology Discharge Summary PROCEDURES PERFORMED DURING STAY: None. ADMITTING DIAGNOSES: 1. Seizure disorder. 2. Respiratory failure DISCHARGE DIAGNOSES: 1. Seizures. 2. Acute hypoxemic respiratory failure COMPLICATIONS/CHIEF COMPLAINT: Acute Respiratory Failure, Status Epilepticus. HISTORY OF PRESENT ILLNESS: Patient is a 46-year-old female who is a well-known true seizure but also pseudoseizure history. EMS was reportedly summoned to her home on the evening of 08/16/2021 as she had 9 seizures. When EMS arrived, the only person there was the patient. She was quite confused and thought to be pos tictal. She is given IV Versed by EMS. Patient became apneic. Patient was ventilated with an Ambu bag without device during her transport. On arrival, she was apneic and significant secretions on examination her eyes were very significant nystagmus therefore, the patient was intubated in the emergency department. Emergency department spoke with Dr. Carpenter and the patient was loaded with Keppra and placed on propofol. Patient did not have any further seizure activity. HOSPITAL COURSE: Patient was able to be in breathing on her own while still intubated and would wake up once sedation was stopped. Patient was extubated on 08/17/2021. Patient's care was transferred furred over to the hospitalist service. Patient did not have any acute events overnight on 08/17/2021. Patient initially was having some sore throat but this has since resolved. Patient was also having little bit of difficulty getting up moving around however, once patient woke up more on 08/18/2021, the patient was able to move around more. Patient did not have any seizure activity throughout her hospitalization. Patient was seen by Dr. Sheldon of neurology who recommended continuing the patient's seizure medications and following up with Dr. Gilbret in the outpatient setting. Patient's dose of clobazam was confirmed to be 10 mg twice daily. Patient was feeling well and passed a physical therapy home safety evaluation due to concern from nursing about her moving around. Patient was discharged home on 08/18/2021. Patient's respiratory failure is most likely secondary iatrogenic due to the patient's Versed she received in the field as the patient's respiratory status recovered quickly and there was no other causative agent for the patient's respiratory failure. DISCHARGE MEDICATIONS: Please see below. ALLERGIES: Please see below. PHYSICAL EXAMINATION ON DISCHARGE: VITAL SIGNS: Please see below. General: Alert and oriented female patient who was sitting up in bed when I walked in. Patient did not appear to be in any acute distress. HEENT: Normocephalic, atraumatic, moist mucous membranes. Neck: No lymphadenopathy or thyromegaly Cardiac: Regular rate and rhythm, no murmurs, normal S1, normal S2 Pulm: Clear to auscultation bilaterally. No wheezes, rhonchi, rales Abd: Nondistended, nontender to palpation, normal bowel sounds Ext: No edema bilateral lower extremities LABORATORY DATA: Please see below. IMAGING: Chest x-ray performed on 08/16/2021 was reported to show endotracheal tube terminating in the trachea 3.1 cm below the landyr. Enteric tube terminating in the body of the stomach and the sidehole in the enteric tube terminates just below the gastroesophageal junction. No radiographic evidence for an acute cardiopulmonary process. CT of the head performed without contrast on 08/16/2021 was reported to show no acute intracranial abnormality PROGNOSIS: Good ACTIVITY: As tolerated. DIET: Regular DISCHARGE PLAN: Discharge home DISPOSITION: 01-Home, self-care DISCHARGE INSTRUCTIONS: 1. Follow-up with your primary care provider within 3 to 5 days discharge. 2. Follow-up with Dr. Gilbert as scheduled. 3. Continue taking your home seizure medications. 4. Return to the emergency department if your symptoms worsen. ITEMS TO FOLLOWUP ON ON OUTPATIENT: 1. None. DISCHARGE CONDITION: Stable. TIME SPENT ON DISCHARGE: 35 minutes. Vital Signs/I&Os Vital Signs Date Time Temp Pulse Resp B/P (MAP) Pulse Ox O2 Delivery O2 Flow Rate FiO2 08/18/21 12:00 98.1 88 16 124/64 (84) 94 Room Air 08/17/21 11:00 5.0 28 I&O- Last 24 Hours up to 6 AM 08/18/21 06:00 Intake Total 2413 ml Output Total 2250 ml Balance 163 ml Laboratory Data Labs 24H Laboratory Tests 2 08/17/21 20:03: 08/18/21 05:17: Immature Granulocyte % (Auto) 0.4, Neutrophils (%) (Auto) 55.0, Lymphocytes (%) (Auto) 35.6, Monocytes (%) (Auto) 6.6, Eosinophils (%) (Auto) 1.6, Basophils (%) (Auto) 0.8, Neutrophils # (Auto) 4.6, Lymphocytes # (Auto) 3.0, Monocytes # (Auto) 0.6, Eosinophils # (Auto) 0.1, Basophils # (Auto) 0.1, Nucleated Red Blood Cells % (auto) 0.0, Anion Gap 5L, Glomerular Filtration Rate > 60.0, Calcium Level 8.3L, Phosphorus Level 4.2#, Total Bilirubin 0.2, Aspartate Amino Transf (AST/SGOT) 11, Alanine Aminotransferase (ALT/SGPT) 10L, Alkaline Phosphatase 86, Lactate Dehydrogenase 148, Total Creatine Kinase 52, Total Protein 5.6L, Albumin 2.9L, Albumin/Globulin Ratio 1.1L, Triglycerides Level 359H, Cholesterol Level 214H CBC/BMP Laboratory Tests 08/18/21 05:17 Discharge Medications Scheduled Citalopram Hydrobromide (Citalopram HBr) 40 Mg Tablet, 20 MG PO BID, (Reported) Clobazam (Clobazam) 10 Mg Tablet, 10 MG PO BID, (Reported) Erenumab-Aooe (Aimovig Autoinjector) 140 Mg/1 Ml Auto.injct, 140 MG INJ QMONTH, (Reported) Lamotrigine (Lamotrigine) 100 Mg Tablet, 300 MG PO BID, (Reported) Scheduled PRN Lorazepam (Lorazepam) 1 Mg Tablet, 1 MG PO DAILY PRN for SEIZURES, (Reported) TAKE AT ONSET OF SIEZURE Miscellaneous Medications [Med Rec Comment] , (Reported) UNABLE TO VERIFY WITH PT Allergies Coded Allergies: Sulfa (Sulfonamide Antibiotics) (Verified Allergy, Severe, stopped breathing, 07/25/19) stopped breathing latex (Verified Allergy, Intermediate, rash, 07/25/19) PALLAVI SUAZO DO Aug 18, 2021 13:30
== END 2021-08-18 14:10 | disposition home or self-care (01) | DRG 100 ==
LOC: M ED 23:33 → M ED INP 08-17 02:31 → ENRESERV 08-17 02:59 → M ICU 08-17 03:37 → M PCU 08-17 18:10
PROVIDERS: ADMIT Internal Medicine Pulmonary Disease; ATTEND Internal Medicine
PROC: 0BH17EZ Insertion of Endotracheal Airway into Trachea, Via Natural or Artificial Opening (ICD-10-PCS; principal; 2021-08-17)
DX: G40.909 Epilepsy, unspecified, not intractable, without status epilepticus (principal); J96.01 Acute respiratory failure with hypoxia; Z79.899 Other long term (current) drug therapy; G43.909 Migraine, unspecified, not intractable, without status migrainosus; Z20.822 Contact with and (suspected) exposure to COVID-19

== ENCOUNTER → 2024-01-16 | Outpatient (REF) | payer MEDICARE, MEDICAID ==
[~2024-01-16] MED LIST changes: +AIMO70IN2 INJ; +AIMO70IN2 SQ; +ATIV1TAB7 PO; +CITA40TA7 PO; +CLOB10TA15 PO; +KEPP1TAB PO; +LAMO100T3 PO; +LIDO5TD TOP; +LORA1TAB23 PO; -LORA1TAB4 PO; +MED REC COMMENT; +MELO15TA28 PO; +PATIENT COMMENT
[2024-01-16 17:44] LABS: BASO # 0.1 10^3/uL (0.0-0.2); BASO % 1.2 % (0.0-1.0); EOS # 0.3 10^3/uL (0.0-0.5); EOS % 2.8 % (0.0-3.0); HEMATOCRIT 41.3 % (36.0-47.0); HEMOGLOBIN 13.4 g/dl (12.0-15.5); LYMPH % 27.5 % (24.0-44.0); MEAN CORPUSCULAR HEMOGLOBIN 32.1 pg (27.0-33.0); MEAN CORPUSCULAR HGB CONC 32.4 g/dl (32.0-36.5); MEAN CORPUSCULAR VOLUME 98.8 fl (80.0-96.0); MONO # 0.5 10^3/uL (0.0-0.8); MONO % 4.8 % (2.0-8.0); NEUTROPHILS % 63.4 % (36.0-66.0); PLATELET COUNT, AUTOMATED 263 10^3/uL (150-450); RED BLOOD COUNT 4.18 10^6/uL (4.00-5.40)
[2024-01-16 17:59] LABS: CREATININE, URINE 71.4 MG/DL; MAU/CREAT RATIO 281.5 MCG/MG (0.0-30.0)
[2024-01-16 18:04] LABS: THYROID STIMULATING HORMONE 2.319 uIU/ML (0.55-4.78)
[2024-01-16 18:06] LABS: ALBUMIN 3.5 G/DL (3.2-5.2); ALKALINE PHOSPHATASE 106 U/L (46-116); ALT/SGPT 15 U/L (7.0-40); AST/SGOT 12 U/L (<34); BILIRUBIN,TOTAL 0.2 MG/DL (0.3-1.2); BLOOD UREA NITROGEN 7 MG/DL (9-23); CALCIUM LEVEL 8.9 MG/DL (8.5-10.1); CARBON DIOXIDE LEVEL 29 MMOL/L (20-31); CHLORIDE LEVEL 104 MMOL/L (98-107); CHOLESTEROL LEVEL 231 MG/DL (<200); CHOLESTEROL RISK RATIO 5.01 (<5); CREATININE FOR GFR 0.74 MG/DL (0.55-1.30); GLOMERULAR FILTRATION RATE > 60.0 (>58); GLUCOSE, FASTING 79 MG/DL (60-100); HDL CHOLESTEROL 46.1 MG/DL (>40); LDL CHOLESTEROL 144.3 MG/DL (<100); NON-HDL-C 184.9 MG/DL; POTASSIUM SERUM 4.5 MMOL/L (3.5-5.1); SODIUM LEVEL 136 MMOL/L (136-145); TOTAL PROTEIN 6.4 G/DL (5.7-8.2); TRIGLYCERIDES LEVEL 203 MG/DL (<150)
== END ==
LOC: M LABDRWCV 17:15
PROVIDERS: ATTEND Family Medicine
DX: E78.5 Hyperlipidemia, unspecified (principal); G40.89 Other seizures; R03.0 Elevated blood-pressure reading, without diagnosis of hypertension

== ENCOUNTER → 2024-01-17 | Outpatient (CLI) | payer MEDICAID, MEDICARE | LOC: M WHC 09:40 | PROVIDERS: ATTEND Family Medicine | DX: Z12.31 Encounter for screening mammogram for malignant neoplasm of breast (principal); R92.333 Mammographic heterogeneous density, bilateral breasts ==

== ENCOUNTER 2024-07-17 09:38 | Day surgery (SDC) | payer MEDICARE, MEDICAID ==
[~2024-07-17] VITALS: Ht 163.8 cm; Wt 67.6 kg
[~2024-07-17 09:38] MED LIST changes: +CITA10TA7 PO; -CLOB10TA15 PO; +CLOB10TA3 PO; +EXCETAB32 PO; +OXCA150T21 PO; +PANT40TA29 PO; +SENN-186 PO; +propofoL 200 MG/20 ML VIAL As Ordered ONE
[2024-07-17] MEDS: NS 1,000 ML IV ONE (10:01)
[2024-07-17] MEDS ORDERED: fentaNYL 100 MCG/2 ML INJECTION As Ordered ONE (11:18)
[2024-07-17] MEDS ORDERED: LIDOCAINE 2% 100MG/5ML SDV (FOR ANES.) As Ordered ONE (11:18)
[2024-07-17 11:57] VITALS: TEMP 97.9
[2024-07-17 12:17] VITALS: BP 141/82; O2SAT 95
== END 2024-07-17 12:23 | disposition home or self-care (01) ==
LOC: M OPP 09:38
PROVIDERS: ATTEND Internal Medicine Gastroenterology
DX: D12.0 Benign neoplasm of cecum (principal); K63.5 Polyp of colon; K64.8 Other hemorrhoids; K57.30 Diverticulosis of large intestine without perforation or abscess without bleeding; Z80.0 Family history of malignant neoplasm of digestive organs; Z83.719 Family history of colon polyps, unspecified; K59.00 Constipation, unspecified; K29.70 Gastritis, unspecified, without bleeding; R11.0 Nausea; G47.30 Sleep apnea, unspecified; F17.200 Nicotine dependence, unspecified, uncomplicated; Z79.1 Long term (current) use of non-steroidal anti-inflammatories (NSAID); Z79.899 Other long term (current) drug therapy; Z88.0 Allergy status to penicillin; Z88.1 Allergy status to other antibiotic agents; Z88.2 Allergy status to sulfonamides; Z91.040 Latex allergy status
CPT/HCPCS: 43239; 45385; 88305; J3010

== ENCOUNTER → 2024-12-19 | Outpatient (REF) | payer MEDICARE, MEDICAID ==
[~2024-12-19] MED LIST changes: +LISI10TA22 PO; +OXCA300T14 PO; +PANT20TA51 PO; -propofoL 200 MG/20 ML VIAL As Ordered ONE
== END ==
LOC: M SFHCCAPE 11:10
PROVIDERS: ATTEND Physician Assistant Medical
DX: J02.9 Acute pharyngitis, unspecified (principal)

== ENCOUNTER → 2024-12-19 | Outpatient (REF) | payer MEDICARE, MEDICAID ==
[~2024-12-19] MED LIST changes: -LISI10TA22 PO; -OXCA300T14 PO; -PANT20TA51 PO
[2024-12-19 17:51] LABS: BASO % 0.5 % (0.0-1.0); HEMOGLOBIN 13.3 g/dl (12.0-15.5); LYMPH # 0.4 10^3/uL (1.5-5.0); LYMPH % 9.5 % (24.0-44.0); MEAN CORPUSCULAR VOLUME 86.7 fl (80.0-96.0); MONO # 0.3 10^3/uL (0.0-0.8); MONO % 6.1 % (2.0-8.0); NEUTROPHILS # 3.4 10^3/uL (1.5-8.5); NEUTROPHILS % 83.4 % (36.0-66.0); PLATELET COUNT, AUTOMATED 212 10^3/uL (150-450); RED BLOOD COUNT 4.15 10^6/uL (4.00-5.40); WHITE BLOOD COUNT 4.1 10^3/uL (4.0-10.0)
[2024-12-19 17:54] LABS: MEAN CORPUSCULAR HGB CONC 36.9 g/dl (32.0-36.5)
[2024-12-19 17:56] LABS: THYROID STIMULATING HORMONE 1.286 uIU/ML (0.55-4.78)
[2024-12-19 18:03] LABS: ALBUMIN 3.5 G/DL (3.2-5.2); ALKALINE PHOSPHATASE 122 U/L (35-104); ALT/SGPT 13 U/L (7.0-40); AST/SGOT 14 U/L (<34); BILIRUBIN,TOTAL 0.2 MG/DL (0.3-1.2); BLOOD UREA NITROGEN 7 MG/DL (9-23); CALCIUM LEVEL 8.8 MG/DL (8.5-10.1); CARBON DIOXIDE LEVEL 24 MMOL/L (20-31); CHLORIDE LEVEL 86 MMOL/L (98-107); CHOLESTEROL LEVEL 244 MG/DL (<200); CHOLESTEROL RISK RATIO 5.37 (<5); CREATININE FOR GFR 0.61 MG/DL (0.55-1.30); GLOMERULAR FILTRATION RATE > 60.0 (>58); GLUCOSE, FASTING 88 MG/DL (60-100); HDL CHOLESTEROL 45.4 MG/DL (>40); NON-HDL-C 198.6 MG/DL; POTASSIUM SERUM 4.1 MMOL/L (3.5-5.1); SODIUM LEVEL 120 MMOL/L (136-145); TOTAL PROTEIN 6.8 G/DL (5.7-8.2); TRIGLYCERIDES LEVEL 68 MG/DL (<150)
== END ==
LOC: M LABDRWCV 16:47
PROVIDERS: ATTEND Family Medicine
DX: I10 Essential (primary) hypertension (principal); E78.5 Hyperlipidemia, unspecified; M25.59 Pain in other specified joint

== ENCOUNTER → 2024-12-20 | Outpatient (REF) | payer MEDICARE, MEDICAID ==
[~2024-12-20] MED LIST changes: +LISI10TA22 PO; +OXCA300T14 PO; +PANT20TA51 PO
[2024-12-20 18:05] LABS: CREATININE, URINE 117.7 MG/DL
[2024-12-20 18:24] LABS: MAU/CREAT RATIO 1605.7 MCG/MG (0.0-30.0)
== END ==
LOC: M LABDRWCV 16:39
PROVIDERS: ATTEND Family Medicine
DX: I10 Essential (primary) hypertension (principal); E78.5 Hyperlipidemia, unspecified

== ENCOUNTER 2024-12-21 12:35 | Inpatient (IN) | payer MEDICARE, MEDICAID ==
[~2024-12-21] VITALS: Ht 165.1 cm; Wt 63.4 kg
[~2024-12-21 12:35] MED LIST changes: -LISI10TA22 PO; -OXCA300T14 PO; -PANT20TA51 PO
[2024-12-21 13:14] LABS: BASO % 0.3 % (0.0-1.0); EOS # 0.1 10^3/uL (0.0-0.5); EOS % 3.2 % (0.0-3.0); HEMATOCRIT 36.9 % (36.0-47.0); HEMOGLOBIN 13.4 g/dl (12.0-15.5); LYMPH # 0.5 10^3/uL (1.5-5.0); LYMPH % 16.1 % (24.0-44.0); MEAN CORPUSCULAR HEMOGLOBIN 32.1 pg (27.0-33.0); MEAN CORPUSCULAR HGB CONC 36.3 g/dl (32.0-36.5); MEAN CORPUSCULAR VOLUME 88.3 fl (80.0-96.0); MONO # 0.2 10^3/uL (0.0-0.8); MONO % 6.3 % (2.0-8.0); NEUTROPHILS # 2.3 10^3/uL (1.5-8.5); NEUTROPHILS % 73.2 % (36.0-66.0); PLATELET COUNT, AUTOMATED 159 10^3/uL (150-450); RED BLOOD COUNT 4.18 10^6/uL (4.00-5.40); WHITE BLOOD COUNT 3.2 10^3/uL (4.0-10.0)
[2024-12-21 13:44] LABS: ALBUMIN 3.3 G/DL (3.2-5.2); ALKALINE PHOSPHATASE 117 U/L (35-104); ALT/SGPT 15 U/L (7.0-40); AST/SGOT 20 U/L (<34); BILIRUBIN,DIRECT < 0.1 MG/DL (<0.4); BILIRUBIN,TOTAL 0.2 MG/DL (0.3-1.2); BLOOD UREA NITROGEN 6 MG/DL (9-23); CALCIUM LEVEL 7.7 MG/DL (8.5-10.1); CARBON DIOXIDE LEVEL 29 MMOL/L (20-31); CHLORIDE LEVEL 86 MMOL/L (98-107); GLOMERULAR FILTRATION RATE > 60.0 (>58); GLUCOSE, FASTING 105 MG/DL (60-100); POTASSIUM SERUM 3.3 MMOL/L (3.5-5.1); SODIUM LEVEL 122 MMOL/L (136-145); TOTAL PROTEIN 6.4 G/DL (5.7-8.2)
[2024-12-21] MEDS: ACETAMINOPHEN *IV* 1,000 MG in IV 1 EA IV ONE (14:05)
[2024-12-21] MEDS: NS (Normal Saline) 0.9% 1,000 ML IV ONE (14:05)
[2024-12-21] MEDS: MORPHINE 2 MG/ML 1ML VIAL IV ONE (14:05)
[2024-12-21] MEDS: POTASSIUM CHLORIDE 10MEQ SR TABLET PO ONE (14:40)
[2024-12-21 14:48] LABS: MAGNESIUM LEVEL 1.6 MG/DL (1.8-2.4)
[2024-12-21] MEDS: KCL 10MEQ/100ML SWI (KRUN) 10 MEQ in IV 1 EA IV ONE (15:10)
[2024-12-21] MEDS: MAG SULF 1GM/100ML (MAG RUN) 1 GM in IV 1 EA IV ONE (15:10)
[2024-12-21 15:15] LABS: OSMOLALITY SERUM 246 MOSM/KG (275-295)
[2024-12-21 15:16] LABS: FREE T4 1.16 NG/DL (0.89-1.76); THYROID STIMULATING HORMONE 1.169 uIU/ML (0.55-4.78)
[2024-12-21] MEDS ORDERED: OXCA300T14 PO (15:50)
[2024-12-21] MEDS ORDERED: PANT20TA51 PO (15:50)
[2024-12-21] MEDS ORDERED: LISI10TA22 PO (15:50)
[2024-12-21] MEDS ORDERED: HOME MED LIST COMPLETE! XX SCH (15:55)
[2024-12-21 16:18] LABS: PROCALCITONIN 0.13 ng/ml
[2024-12-21] MEDS ORDERED: LORazepam 1 MG TAB PO PRN (16:25)
[2024-12-21 18:19] LABS: BLOOD UREA NITROGEN < 5 MG/DL (9-23); CALCIUM LEVEL 7.4 MG/DL (8.5-10.1); CARBON DIOXIDE LEVEL 24 MMOL/L (20-31); CHLORIDE LEVEL 90 MMOL/L (98-107); CREATININE FOR GFR 0.48 MG/DL (0.55-1.30); GLOMERULAR FILTRATION RATE > 60.0 (>58); GLUCOSE, FASTING 92 MG/DL (60-100); PHOSPHORUS LEVEL 2.8 MG/DL (2.5-4.9); PTH INTACT 93.6 PG/ML (18.5-88.0); SODIUM LEVEL 121 MMOL/L (136-145); TOTAL 25(OH) VITAMIN D 9.2 NG/ML (20.0-100.0)
[2024-12-21] MEDS: NS (Normal Saline) 0.9% 1,000 ML IV SCH (18:33)
[2024-12-21] MEDS: CALCIUM GLUCONATE 1,000 MG in DEXTROSE 5% (D5W) MINI-BAG PLU 100 ML IV ONE (18:35)
[2024-12-21 20:35] VITALS: BP 135/95; TEMP 97.8; O2SAT 99
[2024-12-21 20:49] VITALS: BP 135/95; TEMP 97.8; O2SAT 99
[2024-12-21] MEDS ORDERED: OXcarbazepine 300 MG TAB PO SCH (21:00)
[2024-12-21] MEDS: MAG SULF 1GM/100ML (MAG RUN) 1 GM in IV 1 EA IV SCH (21:53)
[2024-12-21] MEDS: lamoTRIgine 100MG TAB PO SCH (21:54)
[2024-12-21] MEDS: SENNA 8.6 MG TAB (SENOKOT) PO SCH (21:54)
[2024-12-21] MEDS: METOCLOPRAMIDE INJ 10MG/2ML VIAL IV PRN (21:55)
[2024-12-21] MEDS: CALCIUM CARBONATE 500 MG CHEW U/D PO SCH (22:13)
[2024-12-21 22:31] LABS: IONIZED CALCIUM 4.5 MG/DL (4.5-5.3)
[2024-12-21] MEDS: OXcarbazepine 150 MG TAB PO SCH (22:35)
[2024-12-21 23:07] LABS: BLOOD UREA NITROGEN < 5 MG/DL (9-23); CALCIUM LEVEL 8.5 MG/DL (8.5-10.1); CARBON DIOXIDE LEVEL 25 MMOL/L (20-31); CHLORIDE LEVEL 96 MMOL/L (98-107); CREATININE FOR GFR 0.53 MG/DL (0.55-1.30); GLOMERULAR FILTRATION RATE > 60.0 (>58); GLUCOSE, FASTING 114 MG/DL (60-100); POTASSIUM SERUM 4.1 MMOL/L (3.5-5.1); SODIUM LEVEL 128 MMOL/L (136-145)
[2024-12-21] MEDS: ONDANSETRON 4MG 2ML VIAL IV PRN (23:14)
[2024-12-21 23:30] VITALS: BP 117/72; TEMP 97.4; O2SAT 96
[2024-12-22 04:16] LABS: HEMATOCRIT 38.4 % (36.0-47.0); HEMOGLOBIN 13.4 g/dl (12.0-15.5); MEAN CORPUSCULAR HEMOGLOBIN 31.8 pg (27.0-33.0); MEAN CORPUSCULAR HGB CONC 34.9 g/dl (32.0-36.5); MEAN CORPUSCULAR VOLUME 91.2 fl (80.0-96.0); PLATELET COUNT, AUTOMATED 162 10^3/uL (150-450); RED BLOOD COUNT 4.21 10^6/uL (4.00-5.40); WHITE BLOOD COUNT 2.4 10^3/uL (4.0-10.0)
[2024-12-22 04:21] LABS: BLOOD UREA NITROGEN < 5 MG/DL (9-23); CALCIUM LEVEL 8.2 MG/DL (8.5-10.1); CARBON DIOXIDE LEVEL 23 MMOL/L (20-31); CHLORIDE LEVEL 100 MMOL/L (98-107); CREATININE FOR GFR 0.56 MG/DL (0.55-1.30); GLOMERULAR FILTRATION RATE > 60.0 (>58); GLUCOSE, FASTING 84 MG/DL (60-100); POTASSIUM SERUM 4.3 MMOL/L (3.5-5.1); SODIUM LEVEL 131 MMOL/L (136-145)
[2024-12-22 04:57] VITALS: BP 122/70; TEMP 97.7; O2SAT 98
[2024-12-22 07:46] VITALS: BP 139/64; TEMP 98.2; O2SAT 96
[2024-12-22] MEDS: OSELTAMIVIR PHOSPHATE 75 MG CAP (TAMIFLU) PO SCH (09:22)
[2024-12-22] MEDS: PANTOPRAZOLE 20 MG TAB PO SCH (09:22)
[2024-12-22] MEDS: ENOXAPARIN 40MG/0.4ML SYRINGE (J1650 PER 10MG) SC SCH (09:23)
[2024-12-22] MEDS: D5W 1000ML IV ONE (11:00)
[2024-12-22 11:16] LABS: BLOOD UREA NITROGEN < 5 MG/DL (9-23); CALCIUM LEVEL 8.2 MG/DL (8.5-10.1); CARBON DIOXIDE LEVEL 24 MMOL/L (20-31); CHLORIDE LEVEL 100 MMOL/L (98-107); CREATININE FOR GFR 0.56 MG/DL (0.55-1.30); GLOMERULAR FILTRATION RATE > 60.0 (>58); GLUCOSE, FASTING 90 MG/DL (60-100); POTASSIUM SERUM 4.2 MMOL/L (3.5-5.1); SODIUM LEVEL 133 MMOL/L (136-145)
[2024-12-22 15:44] VITALS: BP 134/76; TEMP 98.3; O2SAT 98
[2024-12-22] MEDS: VITAMIN D 50,000 UNITS CAPSULE (ERGOCALCIFEROL 1.25MG) PO SCH (16:25)
[2024-12-22 18:38] LABS: BLOOD UREA NITROGEN < 5 MG/DL (9-23); CALCIUM LEVEL 7.9 MG/DL (8.5-10.1); CARBON DIOXIDE LEVEL 25 MMOL/L (20-31); CHLORIDE LEVEL 99 MMOL/L (98-107); CREATININE FOR GFR 0.72 MG/DL (0.55-1.30); GLOMERULAR FILTRATION RATE > 60.0 (>58); GLUCOSE, FASTING 102 MG/DL (60-100); SODIUM LEVEL 134 MMOL/L (136-145)
[2024-12-22 19:41] VITALS: BP 132/84; TEMP 98.8; O2SAT 97
[2024-12-23 04:24] VITALS: BP 148/95; TEMP 97.9; O2SAT 95
[2024-12-23 07:27] LABS: BLOOD UREA NITROGEN 6 MG/DL (9-23); CALCIUM LEVEL 8.5 MG/DL (8.5-10.1); CARBON DIOXIDE LEVEL 30 MMOL/L (20-31); CHLORIDE LEVEL 97 MMOL/L (98-107); CREATININE FOR GFR 0.67 MG/DL (0.55-1.30); GLOMERULAR FILTRATION RATE > 60.0 (>58); GLUCOSE, FASTING 86 MG/DL (60-100); POTASSIUM SERUM 3.9 MMOL/L (3.5-5.1); SODIUM LEVEL 134 MMOL/L (136-145)
[2024-12-23] MEDS ORDERED: OXCA150T21 PO (10:14)
[2024-12-23] MEDS ORDERED: OSEL75CA PO (10:14)
[2024-12-23] MEDS ORDERED: CALC500C16 PO (10:21)
[2024-12-23] MEDS ORDERED: ERGO500029 PO (10:21)
== END 2024-12-23 10:55 | disposition home or self-care (01) | DRG 641 ==
LOC: M ED 12:35 → EDBD 12:35 → M ED INP 16:25 → M PCU 20:25 → M MS5PR 12-22 17:05
PROVIDERS: ADMIT Internal Medicine; ATTEND Internal Medicine
DX: E87.1 Hypo-osmolality and hyponatremia (principal); G40.909 Epilepsy, unspecified, not intractable, without status epilepticus; K21.9 Gastro-esophageal reflux disease without esophagitis; K59.00 Constipation, unspecified; F39 Unspecified mood [affective] disorder; E83.42 Hypomagnesemia; E83.51 Hypocalcemia; E86.0 Dehydration; E87.6 Hypokalemia; J10.1 Influenza due to other identified influenza virus with other respiratory manifestations; Z79.899 Other long term (current) drug therapy; Z88.0 Allergy status to penicillin; Z88.1 Allergy status to other antibiotic agents; Z88.2 Allergy status to sulfonamides; Z88.8 Allergy status to other drugs, medicaments and biological substances; Z91.040 Latex allergy status; F17.200 Nicotine dependence, unspecified, uncomplicated

== ENCOUNTER 2025-07-01 15:33 | Emergency (ER) | payer MEDICARE, MEDICAID ==
[~2025-07-01] VITALS: Ht 162.6 cm; Wt 69.3 kg
[~2025-07-01 15:33] MED LIST changes: +CALC500C16 PO; +ERGO500029 PO; +LISI10TA22 PO; +OSEL75CA PO; +OXCA300T14 PO; +PANT20TA51 PO
[2025-07-01 18:33] LABS: VENOUS BASE EXCESS 0.3 (-2.0-2.0); VENOUS HCO3 24.5 MMOL/L (23.0-27.0); VENOUS O2 SATURATION 98.3 % (60.0-80.0); VENOUS PARTIAL PRESSURE CO2 38.5 mmHg (38.0-50.0); VENOUS PARTIAL PRESSURE O2 134.5 mmHg (30.0-50.0); VENOUS PH 7.422 UNITS (7.330-7.430); VENOUS STANDARD HCO3 24.8 MMOL/L; VENOUS TOTAL CO2 25.7 MMOL/L (24.0-28.0)
[2025-07-01 18:40] LABS: BASO # 0.1 10^3/uL (0.0-0.2); BASO % 1.1 % (0.0-1.0); EOS # 0.2 10^3/uL (0.0-0.5); EOS % 1.8 % (0.0-3.0); LYMPH # 4.0 10^3/uL (1.5-5.0); LYMPH % 44.2 % (24.0-44.0); MONO # 0.5 10^3/uL (0.0-0.8); MONO % 5.6 % (2.0-8.0); NEUTROPHILS # 4.3 10^3/uL (1.5-8.5); NEUTROPHILS % 46.9 % (36.0-66.0); PLATELET COUNT, AUTOMATED 257 10^3/uL (150-450)
[2025-07-01 19:03] LABS: ALT/SGPT 13 U/L (7.0-40); AST/SGOT 22 U/L (<34); CALCIUM LEVEL 8.7 MG/DL (8.5-10.1); CARBON DIOXIDE LEVEL 25 MMOL/L (20-31); CHLORIDE LEVEL 102 MMOL/L (98-107); CREATININE FOR GFR 0.65 MG/DL (0.55-1.30); GLOMERULAR FILTRATION RATE > 90.0 (>58); HCG, SERUM QUALITATIVE NEGATIVE (NEGATIVE); MAGNESIUM LEVEL 1.8 MG/DL (1.8-2.4); PHOSPHORUS LEVEL 3.0 MG/DL (2.5-4.9); POTASSIUM SERUM 4.9 MMOL/L (3.5-5.1); SODIUM LEVEL 134 MMOL/L (136-145)
[2025-07-01] MEDS ORDERED: ISOVUE-370 76% 100 ML VIAL As Ordered ONE (19:08)
[2025-07-01] MEDS ORDERED: KETOROLAC 30 MG/ML 1 ML VIAL IV ONE (20:00)
[2025-07-01] MEDS: ONDANSETRON 4MG ORAL DISINTEGRATING TAB PO ONE (20:29)
[2025-07-01] MEDS: KETOROLAC 60 MG/2 ML VIAL IM ONE (20:37)
[2025-07-01] MEDS ORDERED: lamoTRIgine 100 MG TAB PO ONE (21:25)
[2025-07-01] MEDS: SENNA 8.6 MG TAB PO STA (22:01)
[2025-07-01] MEDS: lamoTRIgine 100 MG TAB PO ONE (22:01)
[2025-07-01] MEDS ORDERED: OXCA300T14 PO (22:44)
[2025-07-01] MEDS ORDERED: OXCA150T21 PO (22:44)
[2025-07-01] MEDS ORDERED: HOME MED LIST COMPLETE! XX SCH (22:50)
[2025-07-01 23:15] VITALS: BP 165/92; TEMP 98.4; O2SAT 97
== END 2025-07-01 23:20 | disposition home or self-care (01) ==
LOC: M ED 15:33
DX: R56.9 Unspecified convulsions (principal); G43.909 Migraine, unspecified, not intractable, without status migrainosus; F41.9 Anxiety disorder, unspecified; E78.5 Hyperlipidemia, unspecified; F17.200 Nicotine dependence, unspecified, uncomplicated; Z79.899 Other long term (current) drug therapy; Z88.0 Allergy status to penicillin; Z88.2 Allergy status to sulfonamides; Z88.1 Allergy status to other antibiotic agents; Z91.040 Latex allergy status
CPT/HCPCS: 70450; 71260; 74177; 80047; 80048; 80076; 80175; 80183; 82140; 82330; 82803; 83605; 83735; 84100; 84703; 85025; 93041; 94760; 96372; 99285; J1885; Q9967

== ENCOUNTER 2025-08-10 16:40 | Emergency (ER) | payer MEDICARE, MEDICAID ==
[~2025-08-10] VITALS: Ht 162.6 cm; Wt 67.1 kg
[2025-08-10 17:43] LABS: BASO # 0.1 10^3/uL (0.0-0.2); BASO % 1.0 % (0.0-1.0); EOS # 0.1 10^3/uL (0.0-0.5); EOS % 0.7 % (0.0-3.0); LYMPH # 1.8 10^3/uL (1.5-5.0); LYMPH % 18.2 % (24.0-44.0); MONO # 0.3 10^3/uL (0.0-0.8); MONO % 2.6 % (2.0-8.0); NEUTROPHILS # 7.8 10^3/uL (1.5-8.5); NEUTROPHILS % 77.2 % (36.0-66.0); PLATELET COUNT, AUTOMATED 252 10^3/uL (150-450)
[2025-08-10 18:08] LABS: ALT/SGPT < 9 U/L (7.0-40); AST/SGOT 8 U/L (<34); CALCIUM LEVEL 8.7 MG/DL (8.5-10.1); CARBON DIOXIDE LEVEL 28 MMOL/L (20-31); CHLORIDE LEVEL 102 MMOL/L (98-107); CREATININE FOR GFR 0.68 MG/DL (0.55-1.30); GLOMERULAR FILTRATION RATE > 90.0 (>58); MAGNESIUM LEVEL 1.9 MG/DL (1.8-2.4); PHOSPHORUS LEVEL 3.0 MG/DL (2.5-4.9); POTASSIUM SERUM 4.0 MMOL/L (3.5-5.1); SODIUM LEVEL 130 MMOL/L (136-145)
[2025-08-10 18:14] LABS: ETHYL ALCOHOL (ETHANOL) 0.067 % (0.000-0.010)
[2025-08-10] MEDS: lamoTRIgine 100 MG TAB PO ONE (18:36)
[2025-08-10] MEDS: ACETAMINOPHEN 325 MG TAB PO ONE (18:36)
[2025-08-10 19:00] VITALS: TEMP 97.9
[2025-08-10] MEDS ORDERED: CALCIUM CHLORIDE 10% 1 GM/10 ML SYR IV ONE (19:55)
[2025-08-10 20:14] LABS: AMPHETAMINES LEVEL URINE NEGATIVE (NEGATIVE); BARBITURATES URINE NEGATIVE (NEGATIVE); CANNABINOIDS URINE NEGATIVE (NEGATIVE); COCAINE METABOLITE URINE NEGATIVE (NEGATIVE); METHADONE URINE NEGATIVE (NEGATIVE); OPIATES URINE NEGATIVE (NEGATIVE); PHENCYCLIDINE URINE NEGATIVE (NEGATIVE)
[2025-08-10 20:17] VITALS: BP 142/87; O2SAT 99
[2025-08-10 20:18] LABS: BENZODIAZEPINES URINE POSITIVE (NEGATIVE)
== END 2025-08-10 20:22 | disposition home or self-care (01) ==
LOC: M ED 16:40 → EDBD 16:40 → M ED 20:22
DX: G40.909 Epilepsy, unspecified, not intractable, without status epilepticus (principal); G43.909 Migraine, unspecified, not intractable, without status migrainosus; E78.5 Hyperlipidemia, unspecified; K21.9 Gastro-esophageal reflux disease without esophagitis; K59.00 Constipation, unspecified; E83.42 Hypomagnesemia; F17.200 Nicotine dependence, unspecified, uncomplicated; Z79.899 Other long term (current) drug therapy; Z88.0 Allergy status to penicillin; Z88.2 Allergy status to sulfonamides; Z88.1 Allergy status to other antibiotic agents; Z91.040 Latex allergy status

== ENCOUNTER 2025-10-16 15:01 | Emergency (ER) | payer MEDICARE, MEDICAID ==
[~2025-10-16] VITALS: Ht 172.7 cm; Wt 66.4 kg
[2025-10-16 17:05] VITALS: BP 140/86; TEMP 98.3; O2SAT 99
== END 2025-10-16 17:15 | disposition home or self-care (01) ==
LOC: EDBD 15:01 → M ED 15:01
DX: G40.909 Epilepsy, unspecified, not intractable, without status epilepticus (principal); Z88.0 Allergy status to penicillin; Z88.2 Allergy status to sulfonamides; Z88.1 Allergy status to other antibiotic agents; G43.909 Migraine, unspecified, not intractable, without status migrainosus; K21.9 Gastro-esophageal reflux disease without esophagitis; Z79.899 Other long term (current) drug therapy; F17.200 Nicotine dependence, unspecified, uncomplicated